=== PATIENT | female | born 2000 | race Caucasian/White ===

== ENCOUNTER 2022-03-14 17:48 | Emergency (ER) | payer MEDICAID ==
[~2022-03-14] VITALS: Ht 160 cm; Wt 61.0 kg
[2022-03-14 19:04] VITALS: BP 110/70
== END 2022-03-14 21:59 | disposition left against medical advice (07) ==
LOC: ER 17:48
DX: Z53.21 Procedure and treatment not carried out due to patient leaving prior to being seen by health care provider (principal)